=== PATIENT | female | born 1965 | race Caucasian/White ===

== ENCOUNTER 2019-04-24 06:15 | Inpatient (IN) ==
[2019-04-24] MEDS ORDERED: SODIUM CHLORIDE 0.9% 500 ML IV STA (06:23)
[2019-04-24] MEDS ORDERED: ASPIRIN 325 MG TABLET PO STA (06:23)
[2019-04-24] MEDS ORDERED: HEPARIN 5,000 UNIT/1 ML VIAL IV STA (06:29)
[2019-04-24] MEDS ORDERED: MORPHINE 4 MG/1 ML VIAL IV STA (06:31)
[2019-04-24] MEDS ORDERED: ONDANSETRON 4 MG/2 ML VIAL IV STA (06:31)
[2019-04-24] MEDS ORDERED: TICAGRELOR 90 MG TABLET PO STA (06:37)
[2019-04-24] MEDS ORDERED: TIROFIBAN 0 MCG in PREMIX 1 EACH IV ONE (06:40)
[2019-04-24] MEDS ORDERED: ASPIRIN CHEW 81 MG TABLET PO STA (06:40)
[2019-04-24] MEDS ORDERED: LIDOCAINE 1% 20 ML VIAL ONE (06:41)
[2019-04-24] MEDS ORDERED: TIROFIBAN 5,000 MCG/100 ML PREMIX IV ONE (06:41)
[2019-04-24] MEDS ORDERED: MIDAZOLAM 2 MG/2 ML VIAL ONE (06:41)
[2019-04-24] MEDS ORDERED: fentaNYL 100 MCG/2 ML VIAL ONE (06:42)
[2019-04-24 06:44] LABS: INR 0.9; PT Patient Result 10.3 SECS (9.6-12.2); Partial Thromboplastin Time 26.4 SECS (20.8-36.0)
[2019-04-24] MEDS ORDERED: TIROFIBAN IV ONE (06:59)
[2019-04-24 07:00] LABS: Alanine Aminotransferase 43 U/L (13-56); Albumin 3.3 G/DL (3.4-5.0); Alkaline Phosphatase 66 U/L (45-117); Aspartate Amino Transferase 285 U/L (0-37); Bilirubin,Total < 0.39 MG/DL (0.2-1.0); Blood Urea Nitrogen 5 MG/DL (7-18); Calcium 8.7 MG/DL (8.5-10.1); Estimated Glom Filtration Rate 91 ML/MIN; Glucose 106 MG/DL (74-106); Osmolality,Calculated 271.7 MOS/KG (273-304); Total Protein 5.8 G/DL (6.4-8.3)
[2019-04-24] MEDS ORDERED: TIROFIBAN 5,000 MCG/100 ML PREMIX IV SCH (07:00)
[2019-04-24 07:04] LABS: Basophils % 0.2 % (0.0-0.8); Eosinophils # 0.1 10*3/uL (0.0-0.87); Eosinophils % 0.7 % (0.00-10.9); Hematocrit 27.7 VOL% (35.7-47.0); Immature Granulocytes % 0.5 %; Immature Granulocytes Absolute 0.05 #; Lymphocytes # 1.8 10*3/uL (1.4-4.0); Lymphocytes % 17.9 % (21.3-54.2); Mean Corpuscular HGB Conc 27.8 GM/DL (32-36); Mean Corpuscular Volume 77.6 FL (87-102); Mean Platelet Volume 9.5 FL (9.6-12.0); Monocytes % 8.5 % (1.7-12.7); Neutrophils % 72.2 % (38.7-73.9); Platelet Count 384 T/CUMM (130-400); Red Blood Count 3.57 MC/CUMM (3.8-5.5); Red Cell Distribution Width 20.2 % (9.3-17.3)
[2019-04-24] MEDS ORDERED: TICAGRELOR 90 MG TABLET ONE (07:04)
[2019-04-24 07:07] LABS: Hemoglobin 7.7 GM/DL (12.0-16.0)
[2019-04-24 07:09] LABS: Hypochromasia 1+; Ovalocytes Slight; Platelet Estimate Adequate
[2019-04-24] MEDS ORDERED: NITROGLYCERIN DRIP 50 MG/250 ML BOTTLE IV ONE (07:43)
[2019-04-24] MEDS ORDERED: fentaNYL 100 MCG/2 ML VIAL IV PRN (09:18)
[2019-04-24] MEDS ORDERED: MAGNESIUM SULF RIDER 2 GM in PREMIX 1 EACH IV PRN (09:18)
[2019-04-24] MEDS ORDERED: ZALEPLON 5 MG CAPSULE PO PRN (09:18)
[2019-04-24] MEDS ORDERED: MAGNESIUM SULF RIDER 4 GM in PREMIX 1 EACH IV PRN (09:18)
[2019-04-24] MEDS ORDERED: CYCLOBENZAPRINE 10 MG TABLET PO PRN (09:27)
[2019-04-24] MEDS ORDERED: IPRATROPIUM 500 MCG/2.5 ML NEB RESP TX PRN (09:27)
[2019-04-24] MEDS ORDERED: ABATACEPT 250 MG IV SCH (09:30)
[2019-04-24] MEDS ORDERED: POTASSIUM CHLORIDE 20 MEQ/15 ML UDCUP PO ONE (09:32)
[2019-04-24 09:44] LABS: Risk Ratio 2.44; VLDL CHOLESTEROL 23.6 MG/DL
[2019-04-24] MEDS: carvediloL 3.125 MG TABLET PO SCH ×3 (09:54→21:19)
[2019-04-24] MEDS: PANTOPRAZOLE 40 MG TABLET PO SCH (10:01)
[2019-04-24 10:18] LABS: CKMB % 17.8 %
[2019-04-24 15:48] LABS: Apearance,Urine CLEAR (Clear); Bilirubin,Urine Negative (Negative); Blood, Urine Negative (Negative); Glucose,Urine (UA) Negative (Negative); Ketones,Urine Negative (Negative); Mucus,Urine Many /LPF (Occasional); Nitrite,Urine Negative (Negative); Protein,Urine Negative; RBC,Urine 4 /HPF (0-4); Squamous Epithelial Cell,Urine Occasional /HPF (0-10); Urine Color Yellow (Yellow); Urine Specific Gravity > 1.060 (1.001-1.035); Urine Urobilinogen < 2.0 EU/DL (0.2-1.0)
[2019-04-24] MEDS ORDERED: ONDANSETRON 4 MG/2 ML VIAL IV PRN (17:29)
[2019-04-24 17:50] LABS: Barbiturates Screen,Urine Negative (Negative); Benzodiazepines Screen,Urine Positive (Negative); Cannabinoid Screen,Urine Negative (Negative); Opiate Screen,Urine Positive (Negative); Phencyclidine Screen,Urine Negative (Negative)
[2019-04-24 18:15] LABS: CKMB % 13.4 %
[2019-04-24] MEDS: TICAGRELOR 90 MG TABLET PO SCH (20:57)
[2019-04-24] MEDS: ROSUVASTATIN 20 MG TABLET PO SCH (20:57)
[2019-04-24] MEDS ORDERED: ROSUVASTATIN 10 MG TABLET PO SCH (21:00)
[2019-04-24] MEDS: traZODone 50 MG TABLET PO PRN (21:07)
[2019-04-25 01:58] LABS: Basophils % 0.3 % (0.0-0.8); Eosinophils # 0.2 10*3/uL (0.0-0.87); Eosinophils % 3.5 % (0.00-10.9); Hematocrit 23.1 VOL% (35.7-47.0); Hemoglobin 6.5 GM/DL (12.0-16.0); Immature Granulocytes % 0.5 %; Immature Granulocytes Absolute 0.03 #; Lymphocytes # 1.3 10*3/uL (1.4-4.0); Lymphocytes % 22.1 % (21.3-54.2); Mean Corpuscular HGB Conc 28.1 GM/DL (32-36); Mean Corpuscular Volume 78.8 FL (87-102); Mean Platelet Volume 8.8 FL (9.6-12.0); Monocytes % 9.1 % (1.7-12.7); Neutrophils % 64.5 % (38.7-73.9); Platelet Count 256 T/CUMM (130-400); Red Blood Count 2.93 MC/CUMM (3.8-5.5); Red Cell Distribution Width 20.9 % (9.3-17.3); White Blood Count 5.9 T/CUMM (4-12)
[2019-04-25 02:38] LABS: Alanine Aminotransferase 32 U/L (13-56); Albumin 2.5 G/DL (3.4-5.0); Alkaline Phosphatase 57 U/L (45-117); Aspartate Amino Transferase 133 U/L (0-37); Bilirubin,Total < 0.39 MG/DL (0.2-1.0); Blood Urea Nitrogen 3 MG/DL (7-18); Calcium 8.2 MG/DL (8.5-10.1); Estimated Glom Filtration Rate 91 ML/MIN; Glucose 102 MG/DL (74-106); Osmolality,Calculated 273.5 MOS/KG (273-304)
[2019-04-25 02:45] LABS: CKMB % 9.2 %
[2019-04-25] MEDS: POTASSIUM CHLORIDE RIDER 10 MEQ in PREMIX 1 EACH IV PRN ×4 (03:00→05:49)
[2019-04-25] MEDS: carvediloL 3.125 MG TABLET PO SCH ×4 (03:24→22:15)
[2019-04-25 03:38] LABS: Hypochromasia 1+; Platelet Estimate Adequate
[2019-04-25] MEDS ORDERED: SODIUM CHLORIDE 0.9% 1,000 ML IV PRN (07:20)
[2019-04-25] MEDS: FERROUS SULFATE ER 140 MG TABLET PO SCH (08:35)
[2019-04-25] MEDS: TICAGRELOR 90 MG TABLET PO SCH ×2 (08:35→20:50)
[2019-04-25] MEDS: PANTOPRAZOLE 40 MG TABLET PO SCH ×2 (08:35→20:50)
[2019-04-25] MEDS: ASPIRIN CHEW 81 MG TABLET PO SCH (08:35)
[2019-04-25] MEDS: ESCITALOPRAM 10 MG TABLET PO SCH (08:35)
[2019-04-25] MEDS ORDERED: FUROSEMIDE 20 MG/2 ML VIAL IV ONE (11:15)
[2019-04-25 15:49] LABS: Hematocrit 40.2 VOL% (35.7-47.0); Hemoglobin 12.3 GM/DL (12.0-16.0)
[2019-04-25] MEDS: ROSUVASTATIN 20 MG TABLET PO SCH (20:50)
[2019-04-25] MEDS: traZODone 50 MG TABLET PO PRN (21:05)
[2019-04-26 04:12] LABS: Basophils % 0.4 % (0.0-0.8); Eosinophils # 0.3 10*3/uL (0.0-0.87); Eosinophils % 4.3 % (0.00-10.9); Hemoglobin 11.7 GM/DL (12.0-16.0); Immature Granulocytes % 0.4 %; Immature Granulocytes Absolute 0.03 #; Lymphocytes # 1.9 10*3/uL (1.4-4.0); Lymphocytes % 25.6 % (21.3-54.2); Mean Corpuscular Volume 83.7 FL (87-102); Mean Platelet Volume 9.4 FL (9.6-12.0); Monocytes % 9.1 % (1.7-12.7); Neutrophils % 60.2 % (38.7-73.9); Platelet Count 310 T/CUMM (130-400); Red Blood Count 4.66 MC/CUMM (3.8-5.5); Red Cell Distribution Width 20.2 % (9.3-17.3); White Blood Count 7.2 T/CUMM (4-12)
[2019-04-26] MEDS: carvediloL 3.125 MG TABLET PO SCH ×2 (04:20→09:00)
[2019-04-26 04:51] LABS: CKMB % 3.8 %; Calcium 8.8 MG/DL (8.5-10.1); Osmolality,Calculated 275.4 MOS/KG (273-304)
[2019-04-26 04:56] LABS: Troponin I 24.8 NG/ML (0.00-0.045)
[2019-04-26] MEDS ORDERED: POTASSIUM CHLORIDE 20 MEQ TABLET PO ONE (08:18)
[2019-04-26] MEDS: ASPIRIN CHEW 81 MG TABLET PO SCH (08:50)
[2019-04-26] MEDS: TICAGRELOR 90 MG TABLET PO SCH (08:50)
[2019-04-26] MEDS: FERROUS SULFATE ER 140 MG TABLET PO SCH (08:50)
[2019-04-26] MEDS: ESCITALOPRAM 10 MG TABLET PO SCH (08:50)
[2019-04-26] MEDS: PANTOPRAZOLE 40 MG TABLET PO SCH (08:51)
[2019-04-26 12:51] VITALS: BP 101/75
[2019-05-01] MEDS ORDERED: ERGOCALCIFEROL 50,000 UNIT CAPSULE PO SCH (09:00)
== END 2019-04-26 17:36 | disposition home or self-care (01) | DRG 247 ==
LOC: N.ED 06:15 → N.EDINP 06:48 → N.CC 08:54 → N.TELES 04-25 18:02
PROVIDERS: ADMIT Internal Medicine Cardiovascular Disease; ATTEND Internal Medicine Cardiovascular Disease
PROC: CLCCHCL (ICD-10-PCS; 2019-04-24 07:15)

== ENCOUNTER 2021-02-24 09:54 | Inpatient (IN) ==
[2021-02-24] MEDS ORDERED: SODIUM CHLORIDE 0.9% 1,000 ML IV STA (13:42)
[2021-02-24] MEDS ORDERED: PANTOPRAZOLE 40 MG VIAL IV STA (13:42)
[2021-02-24] MEDS ORDERED: ONDANSETRON 4 MG/2 ML VIAL IV STA (13:42)
[2021-02-24 13:57] LABS: Basophils # 0.1 10*3/uL (0.0-0.2); Basophils % 0.5 % (0.0-0.8); Eosinophils # 0.1 10*3/uL (0.0-0.87); Eosinophils % 0.4 % (0.00-10.9); Hematocrit 39.3 VOL% (35.7-47.0); Hemoglobin 12.4 GM/DL (12.0-16.0); Immature Granulocytes % 0.3 %; Immature Granulocytes Absolute 0.04 #; Lymphocytes # 3.3 10*3/uL (1.4-4.0); Lymphocytes % 28.2 % (21.3-54.2); Mean Corpuscular HGB Conc 31.6 GM/DL (32-36); Mean Corpuscular Volume 90.3 FL (87-102); Mean Platelet Volume 9.9 FL (9.6-12.0); Neutrophils % 65.6 % (38.7-73.9); Platelet Count 320 T/CUMM (130-400); Red Blood Count 4.35 MC/CUMM (3.8-5.5); Red Cell Distribution Width 13.3 % (9.3-17.3); White Blood Count 11.9 T/CUMM (4-12)
[2021-02-24 14:07] LABS: PT Patient Result 11.5 SECS (10.5-12.0); Partial Thromboplastin Time 22.7 SECS (23.8-32.1)
[2021-02-24 14:19] LABS: Albumin 3.5 G/DL (3.4-5.0); Bilirubin,Total 0.5 MG/DL (0.20-1.00); Calcium 10.2 MG/DL (8.5-10.1); Osmolality,Calculated 271.1 MOS/KG (273-304); Potassium 4.3 MMOL/L (3.5-5.1); Total Protein 6.8 G/DL (6.4-8.2)
[2021-02-24] MEDS ORDERED: GLUCAGON 1 MG VIAL IM PRN ×2 (16:48→16:53)
[2021-02-24] MEDS ORDERED: DEXTROSE 50% 25 GM/50 ML SYRINGE IV PRN (16:48)
[2021-02-24] MEDS ORDERED: ONDANSETRON 4 MG/2 ML VIAL IV PRN ×2 (16:48→16:53)
[2021-02-24] MEDS ORDERED: ACETAMINOPHEN 325 MG TABLET PO PRN (16:48)
[2021-02-24] MEDS ORDERED: DEXTROSE 50% 25 GM/50 ML VIAL IV PRN (16:53)
[2021-02-24] MEDS ORDERED: traMADol 50 MG TABLET PO PRN (16:54)
[2021-02-24] MEDS ORDERED: LACTATED RINGERS 1,000 ML IV SCH (17:00)
[2021-02-24 19:04] LABS: Hematocrit 32.7 VOL% (35.7-47.0); Hemoglobin 10.4 GM/DL (12.0-16.0)
[2021-02-24] MEDS: LACTATED RINGERS 1,000 ML IV SCH (20:01)
[2021-02-24] MEDS: PANTOPRAZOLE INJ 200 MG in SODIUM CHLORIDE 0.9% 250 ML IV SCH (20:01)
[2021-02-24] MEDS ORDERED: carvediloL 6.25 MG TABLET PO SCH (21:00)
[2021-02-24] MEDS: FLUTICASONE/SALMETEROL 100-50 DISKUS 14 DOSE INH SCH (22:21)
[2021-02-24] MEDS: SERTRALINE 25 MG TABLET PO SCH (22:21)
[2021-02-24 23:29] LABS: Hemoglobin 9.7 GM/DL (12.0-16.0)
[2021-02-25 05:03] LABS: Hematocrit 28.2 VOL% (35.7-47.0); Hemoglobin 8.8 GM/DL (12.0-16.0)
[2021-02-25 05:24] LABS: Basophils % 0.6 % (0.0-0.8); Eosinophils # 0.1 10*3/uL (0.0-0.87); Eosinophils % 2.6 % (0.00-10.9); Hematocrit 27.9 VOL% (35.7-47.0); Immature Granulocytes % 0.6 %; Immature Granulocytes Absolute 0.03 #; Lymphocytes # 1.6 10*3/uL (1.4-4.0); Lymphocytes % 33.1 % (21.3-54.2); Mean Corpuscular HGB Conc 32.3 GM/DL (32-36); Mean Corpuscular Volume 89.7 FL (87-102); Monocytes % 8.1 % (1.7-12.7); Red Cell Distribution Width 13.6 % (9.3-17.3)
[2021-02-25 05:25] LABS: Red Blood Count 3.11 MC/CUMM (3.8-5.5); White Blood Count 4.9 T/CUMM (4-12)
[2021-02-25 05:26] LABS: Platelet Count 177 T/CUMM (130-400)
[2021-02-25 05:30] LABS: Eosinophils 2 % (0-10); Hypochromia 1+; Lymphocytes 30 % (20-55); Microcytosis 1+; Platelet Estimate Adequate; Segmented Neutrophils 63 % (50-85); Total Cells Counted 100
[2021-02-25 05:50] LABS: Albumin 2.6 G/DL (3.4-5.0); Bilirubin,Total 0.4 MG/DL (0.20-1.00); Calcium 8.9 MG/DL (8.5-10.1); Osmolality,Calculated 277.5 MOS/KG (273-304); Potassium 4.3 MMOL/L (3.5-5.1); Total Protein 4.8 G/DL (6.4-8.2); VLDL Cholesterol 15.6 MG/DL
[2021-02-25] MEDS: LACTATED RINGERS 1,000 ML IV SCH ×2 (06:25→21:00)
[2021-02-25] MEDS ORDERED: SODIUM CHLORIDE 0.9% 500 ML IV ONE (07:30)
[2021-02-25] MEDS ORDERED: CHOLECALCIFEROL 1,000 UNIT TABLET PO SCH (09:00)
[2021-02-25] MEDS: ROSUVASTATIN 20 MG TABLET PO SCH (10:04)
[2021-02-25] MEDS: CHOLECALCIFEROL 5,000 UNIT TABLET PO SCH (10:04)
[2021-02-25] MEDS: FLUTICASONE/SALMETEROL 100-50 DISKUS 14 DOSE INH SCH ×2 (10:05→21:01)
[2021-02-25] MEDS: PANTOPRAZOLE INJ 200 MG in SODIUM CHLORIDE 0.9% 250 ML IV SCH (21:00)
[2021-02-25] MEDS: SERTRALINE 25 MG TABLET PO SCH (21:01)
[2021-02-26] MEDS: LACTATED RINGERS 1,000 ML IV SCH (05:46)
[2021-02-26 08:21] VITALS: BP 119/55
[2021-02-26 08:25] LABS: Hematocrit 29.9 VOL% (35.7-47.0); Hemoglobin 9.4 GM/DL (12.0-16.0)
[2021-02-26] MEDS: CHOLECALCIFEROL 5,000 UNIT TABLET PO SCH (08:42)
[2021-02-26] MEDS: ROSUVASTATIN 20 MG TABLET PO SCH (08:42)
[2021-02-26] MEDS: FLUTICASONE/SALMETEROL 100-50 DISKUS 14 DOSE INH SCH (08:42)
== END 2021-02-26 10:20 | disposition home or self-care (01) | DRG 813 ==
LOC: N.ED 09:54 → N.3E 16:48
PROVIDERS: ADMIT Internal Medicine; ATTEND Internal Medicine